=== PATIENT | male | born 1995 | race Caucasian/White ===

== ENCOUNTER 2018-07-23 00:58 | Emergency (ER) | payer OTHER ==
[~2018-07-23] VITALS: Ht 188 cm; Wt 83.9 kg
[2018-07-23 01:04] VITALS: BP_SYST 152
--- NOTE | 2018-07-23 01:04 | NUR ---
Patient to [facility]ING WAY to gown for evaluation. Side rails up.
--- NOTE | 2018-07-23 01:05 | NUR ---
ER at bedside examining patient.
--- NOTE | 2018-07-23 01:18 | NUR ---
Written and verbal consent obtained from patient for blood alcohol, name and verified by patient. Disinfected patient's skin with Iodine that did not contain alcohol or other volatile organic compound. Collected the blood from the subject named by venipuncture, in the presence of Officer [id number]. Used a sterile, dry hypodermic needle and dry vacuum blood collection. The dry vacuum blood collection was supplied by the officer named above. Withdrew two specimens of blood from RAC of the subject named above. Inverted the blood tubes several times to ensure that the preservative and anticoagulant were thoroughly mixed in the blood specimen. I initialed the blood tubes label for identification. The labeled blood tubes were handed directly to the Officer named above. The blood tube stoppers remained in place while I had possession of the blood tubes. The Officer placed tubes into envelope and sealed it in my presence. Envelope initialed by myself and Officer named above. Patient tolerated well, bandage applied, and bleeding controlled.
--- NOTE | 2018-07-23 01:28 | NUR ---
Pt ambulatory in cuffs accompanied by [facility]. No acute distress stated by patient or noted.
[2018-07-23 01:31] VITALS: BP_SYST 156
== END 2018-07-23 01:04 ==
LOC: SED 00:58
DX: Z04.1 Encounter for examination and observation following transport accident (principal); R03.0 Elevated blood-pressure reading, without diagnosis of hypertension; V47.5XXA Car driver injured in collision with fixed or stationary object in traffic accident, initial encounter; Y93.89 Activity, other specified; Y92.410 Unspecified street and highway as the place of occurrence of the external cause; Y99.8 Other external cause status
CPT/HCPCS: 99283